=== PATIENT | male | born 1980 | race African-American/Black ===

== ENCOUNTER 2018-04-30 14:45 | Emergency (ER) | payer SELFPAY ==
[2018-04-30 14:47] VITALS: BP 144/91; PULSE 72; RESP 16; TEMP 36.3; O2SAT 100; BMI 24.4
[2018-04-30 14:56] VITALS: BP 135/80; PULSE 70; RESP 14; O2SAT 98
--- NOTE | 2018-04-30 15:04 | ED.DCSUM_ITS ---
- ER Visit Summary Date of Service: 04/30/18 Chief Complaint: Right hand pain History of Present Illness: The patient is a 37 M who has right hand pain. He states is been ongoing for the past week. The pain is at the second MCP joint of the right hand. Denies any specific injury. He took nothing for this at home. Pain is worse with movement. He has had no previous surgeries to this area. Physical Examination: Vital signs reviewed. Right hand exam reveals tenderness to palpation over the second MCP joint. There is mild amount of swelling. He has painful range of motion. There is no warmth or erythema. There is no finger swelling. Test Results: Right hand x-ray is normal Emergency Department Course and Treatment: Patient was given naproxen. His x- ray is normal. There are no signs of a joint infection. No signs of tenosynovitis. Patient will be treated with naproxen at home. He will ice the hand at home. He will follow-up with orthopedics Treatment Plan: [] Disposition: Discharge Impression: Right hand pain This note was generated with [employer] dictation software. It may contain incorrect words, spelling, and punctuation that were not noted in review of the chart prior to signing ED Disposition - Plan for ED Patient: Chief Complaint: Upper Extremity Injury Referrals: Care Physician,No Primary [Primary Care Provider] -
--- NOTE | 2018-04-30 15:13 | RAD_ITS ---
STUDY: X-RAY - RIGHT HAND REASON FOR EXAM: Male, 37 years old. Pain and swelling overlying the second metacarpal. TECHNIQUE: 3 view(s) of the hand. COMPARISON: None. FINDINGS: Normal radiocarpal articulation. Normal distal radioulnar joint. Normal visualized carpal bones. Normal carpal articulations Normal carpometacarpal articulation of the thumb. Normal second through fifth carpometacarpal joints. Normal metacarpi. Normal metacarpophalangeal joint of the thumb. Normal interphalangeal joint of the thumb. Normal proximal and distal phalanges of the thumb. Normal metacarpophalangeal joints of the second through fifth fingers. Normal proximal and distal interphalangeal joints of the second through fifth fingers. Normal phalanges of the second through fifth fingers. The soft tissue structures are unremarkable. RAD/Hand Min 3 Views IMPRESSION: Normal x-ray examination of the hand. Electronically Signed: Rubén De La O MD at 15:35 EST Tel [phone], Service support ,
[2018-04-30] MEDS: Naproxen 500 MG Tablet PO (15:14)
--- NOTE | 2018-04-30 15:42 | ED.DEP ---
ED Disposition - Plan for ED Patient: Disposition: Home or Assisted Living Chief Complaint: Upper Extremity Injury Instructions: ED Sprain Hand Prescriptions: Naproxen [Naprosyn] 500 mg PO BID PRN #20 tab Referrals: Care Physician,No Primary [Primary Care Provider] - Marcos Olson MD [STAFF PHYSICIAN] -
[2018-04-30 15:46] VITALS: BP 137/80; PULSE 68; RESP 14; O2SAT 97
== END 2018-04-30 15:55 | disposition home or self-care (01) ==
PROVIDERS: Emergency Provider Emergency Medicine
DX: M25.541 Pain in joints of right hand (principal); Z72.0 Tobacco use
CPT/HCPCS: 73130; 99282

== ENCOUNTER 2018-08-09 03:53 | Emergency (ER) | payer SELFPAY ==
[2018-08-09 03:54] VITALS: BP 142/88; PULSE 94; RESP 16; TEMP 36.6; O2SAT 96; BMI 22.7
[2018-08-09 05:21] LABS: Absolute Lymphocyte Count 0.59 X10^3/ul (0.83-4.51); Absolute Neutrophil Count 2.9 X10^3/uL (2.0-7.7); Basophil# 0.01 X10^3/uL; Basophil% 0.3 % (0-1); Differential Indicated SCAN CRITERIA MET; Eosinophil# 0.04 X10^3/uL; Eosinophils% 1.1 % (0-5); Hematocrit 42.8 % (40-54); Hemoglobin 14.3 g/dl (13.0-16.5); Lymphocyte # 0.59 X10^3/ul (4.0); Lymphocyte % 15.5 % (19-41); Mean Corp Hgb Conc 33.4 g/gl (32-36); Mean Corpuscular Volume 92.6 fL (80-94); Mean Platelet Vol. 10.5 fl (6.2-12.0); Monocyte# 0.28 X10^3/uL; Monocyte% 7.4 % (0-10); Neutrophil # 2.88 X10^3/uL (2.7-7.7); Neutrophil % 75.7 % (47-70); POSITIVE COUNT NO; POSITIVE DIFFERENTIAL YES; POSITIVE MORPHOLOGY NO; Platelet Count 180 K/mm3 (150-450); RBC Distribution Width SD 43.1 fl (35.1-43.9); Red Blood Count 4.62 M/mm3 (4.6-6.2); White Blood Count 3.8 K/mm3 (4.4-11.0)
[2018-08-09 05:22] LABS: Anion Gap 9 (5-15); BUN 5 mg/dL (7-18); BUN/Creat Ratio 5.5 RATIO (10-20); Calcium,Total 8.4 mg/dL (8.5-10.1); Chloride 109 mmol/L (98-107); Creatinine, Serum 0.92 mg/dL (0.70-1.30); EST Glomerular Filtration Rate 100 mL/min (>60); Est Glom Filt Rate - Afr Amer 120 mL/min (>60); Glucose 83 mg/dL (74-106); Potassium 3.5 mmol/L (3.5-5.1); Sodium Level 144 mmol/L (136-145)
[2018-08-09 06:00] VITALS: RESP 16
[2018-08-09 06:34] LABS: Amphetamine Urine VISTA NEGATIVE (<1000 ng/mL); Barbiturate Urine VISTA NEGATIVE (< 200 ng/mL); Benzodiazepine Urine VISTA NEGATIVE (< 200 ng/mL); Cocaine Urine VISTA POSITIVE (< 300 ng/mL); Ecstacy Urine VISTA NEGATIVE (< 500 ng/mL); Methadone Urine VISTA NEGATIVE (< 300 ng/mL); PCP Urine VISTA NEGATIVE (< 25 ng/mL); THC Urine VISTA NEGATIVE (< 50 ng/mL); Vista UDS pH Range 6
--- NOTE | 2018-08-09 06:42 | ED.VISSUMM ---
- ER Visit Summary Date of Service: 08/09/18 Chief Complaint: Suicidal gesture History of Present Illness: The patient is a 37 M who presents after a suicidal gesture. Patient states he was having an affair with his for a year and a half. She found out about this 2 weeks ago. He has been staying away from home for the past 2 weeks. He states that last night he had been sending [employer] messages reporting that he was overdosing and took 10 pills. He then sent a message stating that he woke up this morning so it must not of work. He states that he was drinking alcohol and made threats but did not actually take anything. Police were called to home for domestic and the then began to show these messages to the police as well as a video where he held something to his head. His friend stated that this was just a historiography teacher but the officer states he cannot really tell what it was from the video and could not be certain that it was in a gun. After speaking to the police the patient cooperatively came here to the emergency department for evaluation. Patient states that he just said these things because he was intoxicated he does not feel that he is a risk to himself and that he would not harm himself. Physical Examination: Afebrile vitals stable Moist mucous membranes Heart regular rate and rhythm Lungs are clear Abdomen soft Alert Patient has normal speech pattern he shows insight at this point. He currently denies any suicidal or homicidal ideation. Test Results: CBC BMP unremarkable. Urine drug screen positive for cocaine. Serum alcohol 169. Emergency Department Course and Treatment: Patient will be evaluated by crisis this morning. I feel he is potentially a candidate for safety plan and close outpatient follow-up. Patient signed out to the oncoming physician to await crisis evaluation. Treatment Plan: [] Disposition: Pending crisis evaluation Impression: Suicidal gesture This note was generated with [employer] dictation software. It may contain incorrect words, spelling, and punctuation that were not noted in review of the chart prior to signing ED Disposition - Plan for ED Patient: Referrals: Care Physician,No Primary [Primary Care Provider] -
--- NOTE | 2018-08-09 06:45 | ED.DCSUM_ITS ---
- ER Visit Summary Date of Service: 08/09/18 Chief Complaint: Suicidal gesture History of Present Illness: The patient is a 37 M who presents after a suicidal gesture. Patient states he was having an affair with his for a year and a half. She found out about this 2 weeks ago. He has been staying away from home for the past 2 weeks. He states that last night he had been sending [employer] messages reporting that he was overdosing and took 10 pills. He then sent a message stating that he woke up this morning so it must not of work. He states that he was drinking alcohol and made threats but did not actually take anything. Police were called to home for domestic and the then began to show these messages to the police as well as a video where he held something to his head. His friend stated that this was just a blocker and cutter contact lens but the officer states he cannot really tell what it was from the video and could not be certain that it was in a gun. After speaking to the police the patient cooperatively came here to the emergency department for evaluation. Patient states that he just said these things because he was intoxicated he does not feel that he is a risk to himself and that he would not harm himself. Physical Examination: Afebrile vitals stable Moist mucous membranes Heart regular rate and rhythm Lungs are clear Abdomen soft Alert Patient has normal speech pattern he shows insight at this point. He currently denies any suicidal or homicidal ideation. Test Results: CBC BMP unremarkable. Urine drug screen positive for cocaine. Serum alcohol 169. Emergency Department Course and Treatment: Patient will be evaluated by crisis this morning. I feel he is potentially a candidate for safety plan and close outpatient follow-up. Patient signed out to the oncoming physician to await crisis evaluation. Treatment Plan: [] Disposition: Pending crisis evaluation Impression: Suicidal gesture This note was generated with [employer] dictation software. It may contain incorrect words, spelling, and punctuation that were not noted in review of the chart prior to signing ED Disposition - Plan for ED Patient: Referrals: Care Physician,No Primary [Primary Care Provider] -
--- NOTE | 2018-08-09 08:30 | NURSING ---
CALLED CRISIS TO LET THEM KNOW PATIENT IS MEDICALLY CLEARED. TALKED TO ANSWERING SERVICE. THEY WILL RELAY MESSAGE
--- NOTE | 2018-08-09 08:32 | ED.RN ---
Pt sleeping without distress since arrival on shift.
--- NOTE | 2018-08-09 09:44 | NURSING ---
SAM[facility], [facility], HERE FOR PATIENT
--- NOTE | 2018-08-09 10:11 | ED.DEP ---
ED Disposition - Plan for ED Patient: Instructions: ED Depression Referrals: Counseling,Center [GROUP OF PHYSICIANS] -
[2018-08-09 10:23] VITALS: BP 129/85; PULSE 72; RESP 16; O2SAT 99
--- NOTE | 2018-08-09 10:27 | ED.RN ---
Pt d/c from unit. Denies suicidal thoughts. States has appt with crisis set up for coming Friday. Cooperative, polite. Waiting for in waiting room.
== END 2018-08-09 11:27 | disposition home or self-care (01) ==
PROVIDERS: Emergency Provider Emergency Medicine
DX: R45.851 Suicidal ideations (principal); F10.129 Alcohol abuse with intoxication, unspecified; Y90.9 Presence of alcohol in blood, level not specified; F14.90 Cocaine use, unspecified, uncomplicated
CPT/HCPCS: 80048; 80307; 80320; 85025; 99283; G0480

== ENCOUNTER 2020-01-11 13:22 | Emergency (ER) | payer SELFPAY ==
[2020-01-11 13:23] VITALS: BP 154/94; PULSE 77; RESP 18; TEMP 36.6; O2SAT 100; BMI 24.9
--- NOTE | 2020-01-11 13:35 | CT_ITS ---
STUDY: CT ABDOMEN AND PELVIS WITHOUT CONTRAST REASON FOR EXAM: Male, 39 years old. BILAT FLANK PAIN/BACK PAIN, HEMATURIA X 3 WKS RADIATION DOSAGE (If Supplied By Facility): CTDIvol = ( 6.62 ) mGy, DLP = ( 304.51 ) mGycm TECHNIQUE: Transaxial images were obtained from the dome of the diaphragm to the symphysis pubis without oral contrast, and without intravenous contrast. Sagittal and coronal images were reconstructed. Individualized dose optimization techniques were used for this CT. COMPARISON: None. FINDINGS: The visualized lung bases are unremarkable. The visualized portions of the heart are within normal limits. Normal liver. Normal gallbladder and extrahepatic biliary system. Normal spleen. Normal pancreas. Normal bilateral adrenal glands. Normal right kidney. Normal left kidney. Normal visualized stomach. Normal small intestine. Retained stool noted in the colon. The appendix is visualized and appears normal. Findings best seen on coronal recovery image 68 Normal abdominal aorta. Normal inferior vena cava. Normal retroperitoneum. Normal urinary bladder. Normal abdominal wall. Normal osseous structures. CT/Abdomen/Pelvis without Cont IMPRESSION: No suspicious solid organ abnormality, specifically, no obstructive uropathy noted. Retained stool noted throughout the colon. No free intraperitoneal fluid, air, or suspicious adenopathy Electronically Signed: Dipesh Diaz MD at 15:17 EDT , Service support ,
--- NOTE | 2020-01-11 13:36 | ED.DCSUM_ITS ---
History of Present Illness Chief Complaint: Complaint Informant: Patient Narrative: 39-year-old male with no reported medical problems presents with intermittent flank pain for the last 3 weeks. He admits to hematuria. Sometimes he has dysuria. He does note history of kidney stones. He states initially he thought all of the pain is bilateral. Today it seems to be more on the left side. He states he feels kind of rundown. He has not had a fever. Past Medical History - Allergies and Home Meds Allergies/Adverse Reactions: Allergies No Known Allergies Allergy (Verified 01/11/20 13:25) Primary Care Physician: Care Physician,No Primary [Primary Care Provider] - Prior records reviewed: Yes Past Medical History: None Lives: Spouse/ Significant Other Smoking Status: Current every day smoker Alcohol: Heavy Drugs: None Review of Systems General: Denies: Chills, Fever Eyes: Denies: Visual changes - bilaterally, Diplopia ENT: Denies: Rhinorrhea, Sore throat Cardiovascular: Denies: Chest pain, Palpitations Respiratory: Denies: Dyspnea, Cough, Dyspnea on exertion Gastrointestinal: Reports: Nausea. Denies: Melena Genitourinary: Reports: Dysuria, Hematuria Musculoskeletal: Reports: Back pain. Denies: Myalgias Skin: Denies: Rash Psych: Denies: Depression, Anxiety Hematologic: Denies: Easy bruising, Easy bleeding Physical Exam Vital Signs/Narrative: Vital Signs Temp Pulse Resp BP Pulse Ox 01/11/20 13:23 98 F 77 18 154/94 H 100 General: Well nourished, Well developed, No Acute Distress Head: Normocephalic Eyes: Perrl ENT: Moist mucous membranes, No rhinorrhea Cardiovascular: Regular rate, Regular rhythm Respiratory: No distress Abdomen: Soft Back: CVA tenderness - Left Extremities: Nontender, No edema Skin: Normal color Neurological: Alert, Oriented x3 Psychological: Normal affect Diagnostic/Tx/Re-eval Clinical Impression(s) from Imaging Studies Abdomen/Pelvis CT 01/11/20 13:35 IMPRESSION: No suspicious solid organ abnormality, specifically, no obstructive uropathy noted. Retained stool noted throughout the colon. No free intraperitoneal fluid, air, or suspicious adenopathy Electronically Signed: Dipesh Diaz MD at 15:17 EDT , Service support , Laboratory Data 01/11/20 01/11/20 01/11/20 14:00 14:00 15:25 WBC 3.3 L RBC 4.79 Hgb 14.6 Hct 44.3 MCV 92.5 MCH 30.5 MCHC 33.0 RDW Std Deviation 44.4 H RDW Coeff of Phylicia 13.0 Plt Count 179 MPV 10.4 Immature Gran % (Auto) 0.300 Neut % (Auto) 55.3 Lymph % (Auto) 30.2 Andrews % (Auto) 9.4 Eos % (Auto) 4.5 Baso % (Auto) 0.3 Absolute Neuts (auto) 1.8 L Absolute Lymphs (auto) 1.00 Nucleated RBC % 0 Sodium 140 Potassium 4.0 Chloride 107 Carbon Dioxide 32.0 Anion Gap 1 L BUN 10 Creatinine 0.98 Estim Creat Clear Calc 116.63 Est GFR (MDRD) Af Amer 111 Est GFR (MDRD) Non-Af 92 BUN/Creatinine Ratio 10.2 Glucose 87 Calcium 9.0 Urine Color Yellow Urine Clarity Sl. Cloudy Urine pH 6.0 Ur Specific [place] 1.020 Urine Protein Negative Urine Glucose (UA) Normal Urine Ketones 5 H Urine Occult Blood Negative Urine Nitrite Negative Urine Bilirubin Negative Urine Urobilinogen 4 H Ur Leukocyte Esterase 25 H Urine RBC 0 SEEN Urine WBC 5-10 SEEN Ur Squamous Epith Cells 0 SEEN Urine Bacteria RARE Urine Mucus 3+ - Medical Decision Making .Patient presents with hematuria and dysuria which is intermittent. He states he is also had some flank pain. No history of kidney stones. He does state that he has been drinking heavily the past weeks due to the pandemic. He is not had any fevers. He just states that he rundown some days. CT abdomen pelvis is negative. His lab work is unchanged. Patient's urine does show some leukocyte esterase and white blood cells with rare bacteria. Given that he is symptomatic I will treat him for this. Patient will be discharged home in stable condition ED Disposition - Plan for ED Patient: Disposition: Home or Assisted Living Diagnosis: UTI (urinary tract infection) Instructions: ED CYSTITIS Male Adult Referrals: Care Physician,No Primary [Primary Care Provider] -
[2020-01-11 14:21] LABS: Absolute Neutrophil Count 1.8 X10^3/uL (2.0-7.7); Basophil# 0.01 X10^3/uL; Basophil% 0.3 % (0-1); Eosinophil# 0.15 X10^3/uL; Eosinophils% 4.5 % (0-5); Hematocrit 44.3 % (40-54); Hemoglobin 14.6 g/dL (13.0-16.5); Lymphocyte % 30.2 % (19-41); Mean Corpuscular Hgb 30.5 pg (27.0-32.0); Mean Corpuscular Volume 92.5 fL (80-94); Mean Platelet Vol. 10.4 fl (6.2-12.0); Monocyte# 0.31 X10^3/uL; Monocyte% 9.4 % (0-10); NRBC Flagged by Analyzer 0 % (0-5); Neutrophil # 1.83 X10^3/uL (2.7-7.7); Neutrophil % 55.3 % (47-70); Platelet Count 179 K/mm3 (150-450); RBC Distribution Width SD 44.4 fl (35.1-43.9); Red Blood Count 4.79 M/mm3 (4.6-6.2); White Blood Count 3.3 K/mm3 (4.4-11.0)
[2020-01-11 14:32] LABS: Anion Gap 1 (5-15); BUN 10 mg/dL (7-18); BUN/Creat Ratio 10.2 RATIO (10-20); Chloride 107 mmol/L (98-107); Creatinine, Serum 0.98 mg/dL (0.70-1.30); EST Glomerular Filtration Rate 92 mL/min (>60); Est Glom Filt Rate - Afr Amer 111 mL/min (>60); Estimated Creatinine Clearance 116.63 ml/min; Glucose 87 mg/dL (74-106); Sodium Level 140 mmol/L (136-145)
[2020-01-11 15:37] LABS: Red Blood Cells-Urine 0 SEEN /hpf (0-5); Squamous Epithelial Cells - UA 0 SEEN /hpf (0-5)
[2020-01-11 15:45] LABS: Color, Urine Yellow (Yellow); Glucose, Dipstick Normal (Normal); Ketone-Dipstick 5 mg/dl (Negative); Leukocyte Esterase-Dipstick 25 /ul (Negative); Nitrite-Dipstick Negative (Negative); Occult Blood-Urine Negative /ul (Negative); Protein-Dipstick Negative (Negative); Urine Bilirubin Dipstick Negative (Negative); Urine Clarity Sl. Cloudy (Clear); Urine Urobilinogen 4 mg/dl (Normal)
[2020-01-11 16:00] LABS: Mucous, Urine 3+ /hpf (<or=2+); White Blood Cells 5-10 SEEN /hpf (0-5)
[2020-01-11 16:01] LABS: Bacteria RARE /hpf (None Seen)
[2020-01-11] MEDS: Cephalexin 250 MG Capsule 500 MG PO (16:42)
== END 2020-01-11 16:46 | disposition home or self-care (01) ==
PROVIDERS: Emergency Provider Student in an Organized Health Care Education/Training Program
DX: N39.0 Urinary tract infection, site not specified (principal); Z87.442 Personal history of urinary calculi; F17.200 Nicotine dependence, unspecified, uncomplicated
CPT/HCPCS: 74176; 80048; 81001; 85025; 96360; 99284; J7030

== ENCOUNTER 2022-03-12 15:24 | Emergency (ER) | payer SELFPAY ==
[2022-03-12 15:25] VITALS: BP 145/101; PULSE 73; RESP 16; TEMP 36.1; O2SAT 98; BMI 22.6
--- NOTE | 2022-03-12 17:59 | CT_ITS ---
STUDY: CT ABDOMEN AND PELVIS WITHOUT CONTRAST REASON FOR EXAM: Male, 41 years old. flank pain RADIATION DOSAGE (If Supplied By Facility): CTDIvol = ( 6.31 ) mGy, DLP = ( 309.00 ) mGycm TECHNIQUE: Transaxial images were obtained from the dome of the diaphragm to the symphysis pubis without oral contrast, and without intravenous contrast. Sagittal and coronal images were reconstructed. Individualized dose optimization techniques were used for this CT. COMPARISON: 01/11/2020 FINDINGS: The visualized lung bases are unremarkable. The visualized portions of the heart are within normal limits. Normal liver. Normal gallbladder and extrahepatic biliary system. Normal spleen. Normal pancreas. Normal bilateral adrenal glands. Normal right kidney. Normal left kidney. Normal visualized stomach. Nonspecific ileus with diffuse fecal retention in the colon. No evidence for small bowel obstruction The appendix is visualized and appears normal. Normal abdominal aorta. Normal inferior vena cava. Normal retroperitoneum. Poorly distended thick-walled bladder of uncertain significance. Normal abdominal wall. Normal osseous structures. CT/Abdomen/Pelvis without Cont IMPRESSION: Nonspecific ileus with diffuse fecal retention in colon. No evidence for hydronephrosis or renal mass. Poorly distended thick-walled bladder of uncertain etiology and clinical significance Electronically Signed: Kwabena Acuña MD at 18:32 EDT ,
--- NOTE | 2022-03-12 17:59 | EX.ED.DYSGE1 ---
HPI History of Present Illness Chief Complaint: Flank Pain Informant: patient Onset/Context/Timing Onset: Yesterday Context: Gradual Onset Current Severity: Mild Maximum Severity: Moderate Narrative Narrative: Patient presents with generalized body aches worse over the bilateral flank area. He states pain does wrap around into his abdomen. He had nausea and vomiting. He denies diarrhea or urinary symptoms. He did not measure a fever but significant other states that he broke out in cold sweats. He denies cough or shortness of breath. He does report mild dysuria. Due to his vomiting he has noted decreased urine output. PFSH PFSH Medical History no medical history no medical history Home Medications cephalexin 500 mg capsule 500 mg PO Q12 #14 caps 01/11/20 [Rx Last Taken Unknown] Allergy/AdvReac Type Severity Reaction Status Date / Time No Known Allergies Allergy Verified 03/12/22 15:25 Social History Smoking Status: Current every day smoker tobacco type: cigarettes ROS ROS ED Constitutional Constitutional ED: Denies chills or fever(s) Eyes Eyes: Denies change in vision or discharge from eye(s) ENT ENT ED: Denies discharge from eye(s), rhinorrhea or sore throat Cardiovascular Cardiovascular: Denies chest pain or palpitations Respiratory/Chest Respiratory/Chest: Denies cough or dyspnea Gastrointestinal Gastrointestinal: Reports abdominal pain, nausea and vomiting; Denies diarrhea Genitourinary Genitourinary ED: Reports dysuria Musculoskeletal Musculoskeletal: Reports back pain; Denies extremity pain Integumentary Denies Abrasions or rash Neurologic Neurologic: Denies headache(s) or weakness Allergic/Immunologic Allergic/Immunologic ED: Denies lip swelling or urticaria EXAM Physical Exam Const Vital Signs: 03/12/22 15:25 03/12/22 18:54 03/12/22 19:03 Temperature 97 F L Temperature Source Temporal Pulse Rate 73 62 Respiratory Rate 16 14 17 Blood Pressure 145/101 H 136/93 H Blood Pressure Mean 115 107 Pulse Ox 98 100 Oxygen Delivery Method Room Air Room Air Room Air Positive well nourished and well developed General Appearance ED: well developed HEENT Reports normocephalic and head/scalp atraumatic Eyes PERRL and EOMs intact bilaterally Neck supple Chest Wall inspection of chest normal and palpation of chest normal Resp normal respiratory effort and clear to auscultation bilaterally Cardio regular rate and regular rhythm GI normal to inspection, nondistended, normoactive bowel sounds Palpation: soft Extremity normal to inspection Neuro oriented x3 and no sensory deficits noted Sensorium / Orientation: alert Motor Exam: strength 5/5 throughout Psych mental status grossly normal Skin no rashes or lesions noted MDM MDM MDM Narrative Medical decision making narrative: Patient given IV fluids along with Toradol and Zofran. Lab work obtained along with urinalysis. CT flank ordered. Lab Data Attestation: I reviewed the patient's lab results. Labs: Laboratory Results - last 24 hr 03/12/22 03/12/22 03/12/22 17:48 17:48 18:50 WBC 4.7 RBC 4.76 Hgb 14.6 Hct 44.1 MCV 92.6 MCH 30.7 MCHC 33.1 RDW Std Deviation 42.3 RDW Coeff of Phylicia 12.3 Plt Count 218 MPV 10.4 Immature Gran % (Auto) 0.200 Neut % (Auto) 71.6 H Lymph % (Auto) 18.2 L [place] % (Auto) 8.1 Eos % (Auto) 1.7 Baso % (Auto) 0.2 Absolute Neuts (auto) 3.4 Absolute Lymphs (auto) 0.85 Nucleated RBC % 0 Sodium 140 Potassium 3.6 Chloride 104 Carbon Dioxide 26.0 Anion Gap 10 BUN 9 Creatinine 1.03 Estim Creat Clear Calc 106.23 Est GFR (MDRD) Af Amer 103 Est GFR (MDRD) Non-Af 85 BUN/Creatinine Ratio 8.7 L Glucose 156 H Calcium 8.9 Urine Color Yellow Urine Clarity Clear Urine pH 5.0 Ur Specific [place] 1.030 Urine Protein 30 H Urine Glucose (UA) Normal Urine Ketones 15 H Urine Occult Blood 25 H Urine Nitrite Negative Urine Bilirubin Negative Urine Urobilinogen 1 H Ur Leukocyte Esterase 25 H Urine RBC 0-5 SEEN Urine WBC 0-5 SEEN Ur Squamous Epith Cells 0-5 SEEN Urine Bacteria 1+ Urine Mucus 3+ Radiography Diagnostic Testing: Clinical Impression(s) from Imaging Studies Abdomen/Pelvis CT 03/12/22 17:59 IMPRESSION: Nonspecific ileus with diffuse fecal retention in colon. No evidence for hydronephrosis or renal mass. Poorly distended thick-walled bladder of uncertain etiology and clinical significance Electronically Signed: Kwabena Acuña MD at 18:32 EDT , Treatment and Re-Evaluation Narrative: Repeat evaluation patient resting comfortably. He does feel improved. CBC and chemistry studies unremarkable. Renal function is normal. Glucose is 156. Urinalysis shows 1+ bacteria but 0-5 white cells, 0-5 epithelial cells, no nitrites. CT scan the flank is read as a nonspecific ileus with fecal retention. On my review I do not see any obvious abnormalities. I discussed with patient that I think his symptoms are most likely consistent with viral syndrome especially given the generalized body aches. He will continue supportive care at home. Discharge Plan Triage Chief Complaint: Flank Pain ED Provider: Isabel Thomas Dx/Rx/DC Orders Clinical Impression: Viral syndrome Instructions: ED Viral Syndrome (Adult), ED URI, Viral, No Abx (Adult) Prescriptions: No Action cephalexin 500 MG capsule 500 mg PO Q12 Qty: 14 0RF Stand Alone Forms: ED Work / School Excuse Primary Care Provider: Care Physician,No Primary Referrals: Ary Rivera MD [Med Staff - [employer]] - As Needed Care Physician,No Primary [Primary Care Provider] - Disposition Disposition: Home, Self Care
[2022-03-12] MEDS: Ondansetron 4 MG/2 ML Vial IV (18:03)
[2022-03-12] MEDS: 0.9% Normal Saline 1,000 ML 1000 ML IV (18:03)
[2022-03-12] MEDS: Ketorolac 30 MG/ML Syringe IV (18:04)
[2022-03-12 18:14] LABS: Absolute Lymphocyte Count 0.85 X10^3/uL (0.83-4.51); Absolute Neutrophil Count 3.4 X10^3/uL (2.0-7.7); Basophil# 0.01 X10^3/uL; Basophil% 0.2 % (0-1); Eosinophil# 0.08 X10^3/uL; Eosinophils% 1.7 % (0-5); Hematocrit 44.1 % (40-54); Hemoglobin 14.6 g/dL (13.0-16.5); Lymphocyte # 0.85 X10^3/ul (0.83-4.51); Lymphocyte % 18.2 % (19-41); Mean Corp Hgb Conc 33.1 g/dL (32-36); Mean Corpuscular Hgb 30.7 pg (27.0-32.0); Mean Corpuscular Volume 92.6 fL (80-94); Mean Platelet Vol. 10.4 fl (6.2-12.0); Monocyte# 0.38 X10^3/uL; Monocyte% 8.1 % (0-10); NRBC Flagged by Analyzer 0 % (0-5); Neutrophil # 3.35 X10^3/uL (2.7-7.7); Neutrophil % 71.6 % (47-70); Platelet Count 218 K/mm3 (150-450); RBC Distribution Width CV 12.3 % (11.6-14.6); RBC Distribution Width SD 42.3 fl (35.1-43.9); Red Blood Count 4.76 M/mm3 (4.6-6.2); White Blood Count 4.7 K/mm3 (4.4-11.0)
[2022-03-12 18:22] LABS: Anion Gap 10 (5-15); BUN 9 mg/dL (7-18); BUN/Creat Ratio 8.7 RATIO (10-20); Calcium,Total 8.9 mg/dL (8.5-10.1); Chloride 104 mmol/L (98-107); Creatinine, Serum 1.03 mg/dL (0.70-1.30); EST Glomerular Filtration Rate 85 mL/min (>60); Est Glom Filt Rate - Afr Amer 103 mL/min (>60); Estimated Creatinine Clearance 106.23 ml/min; Glucose 156 mg/dL (74-106); Potassium 3.6 mmol/L (3.5-5.1); Sodium Level 140 mmol/L (136-145)
[2022-03-12 18:54] VITALS: BP 136/93; PULSE 62; RESP 14; O2SAT 100
[2022-03-12 19:03] VITALS: RESP 17
[2022-03-12] MEDS: 0.9% Normal Saline 1,000 ML 150 ML IV (19:04)
[2022-03-12 19:08] LABS: Color, Urine Yellow (Yellow); Glucose, Dipstick Normal (Normal); Ketone-Dipstick 15 mg/dl (Negative); Leukocyte Esterase-Dipstick 25 /ul (Negative); Nitrite-Dipstick Negative (Negative); Occult Blood-Urine 25 /ul (Negative); Protein-Dipstick 30 mg/dl (Negative); Urine Bilirubin Dipstick Negative (Negative); Urine Clarity Clear (Clear); Urine Urobilinogen 1 mg/dl (Normal)
[2022-03-12 19:18] LABS: Bacteria 1+ /hpf (None Seen); Mucous, Urine 3+ /hpf (<or=2+); Red Blood Cells-Urine 0-5 SEEN /hpf (0-5); Squamous Epithelial Cells - UA 0-5 SEEN /hpf (0-5); White Blood Cells 0-5 SEEN /hpf (0-5)
[2022-03-12 19:57] VITALS: BP 122/71; PULSE 68; RESP 17; O2SAT 97
== END 2022-03-12 19:58 | disposition home or self-care (01) ==
PROVIDERS: Emergency Provider Emergency Medicine; Visit Provider Emergency Medicine
DX: K56.7 Ileus, unspecified (principal); B34.9 Viral infection, unspecified; F17.210 Nicotine dependence, cigarettes, uncomplicated; R10.9 Unspecified abdominal pain; R11.2 Nausea with vomiting, unspecified; R30.0 Dysuria
CPT/HCPCS: 74176; 80048; 81001; 85025; 96361; 96374; 96375; 99282; J7030; A4216; J2405